=== PATIENT | male | born 1945 | race Caucasian/White ===

== ENCOUNTER → 2018-04-01 | Outpatient (CLI) | payer OTHER ==
[~2018-04-01] MED LIST: LEFLUNOMIDE10 M1 PO; LEVOTHYROXINE100 MC1 PO; LOSARTAN POTAS100 M1 PO; METOPROLOL TART50 M1 PO
== END | disposition home or self-care (01) ==
LOC: CT 09:29
DX: I71.2 Thoracic aortic aneurysm, without rupture (principal); I65.29 Occlusion and stenosis of unspecified carotid artery; I25.10 Atherosclerotic heart disease of native coronary artery without angina pectoris

== ENCOUNTER → 2018-04-05 | Outpatient (CLI) | payer OTHER | END | disposition home or self-care (01) | LOC: CT 04-04 10:00 | DX: I65.23 Occlusion and stenosis of bilateral carotid arteries (principal); K76.89 Other specified diseases of liver; I72.8 Aneurysm of other specified arteries; I71.2 Thoracic aortic aneurysm, without rupture ==

== ENCOUNTER → 2018-06-12 | Day surgery (SDC) | payer OTHER ==
[~2018-06-12] VITALS: Ht 182.8 cm; Wt 74.8 kg
[~2018-06-12] MED LIST changes: +AUGMENTIN 500500 M1 PO; +HYDROCODONE-AC1 EAC1 PO; +LOSARTAN POTASS25 M1 PO; +PREDNISONE5 MG PO
--- NOTE | ~2018-06-12 | O ---
[place], [place] OPERATIVE NOTE NAME: JEREMIAH PALMA UNIT #: [id number] ROOM: DOCTOR: MASON JEAN MD BIRTHDATE: [birth year] DOS: 06/12/2018 PREOPERATIVE DIAGNOSIS: Cataract, left eye. POSTOPERATIVE DIAGNOSIS: Cataract, left eye. OPERATION: Extracapsular cataract extraction by phacoemulsification with posterior chamber intraocular lens implantation, left eye. ANESTHESIA: Monitored standby. OPERATIVE FINDINGS AND PROCEDURE: 2% Xylocaine topical anesthetic gel was applied to the eye in the preop area. The patient was taken to the operating room and prepped and draped in the standard fashion for sterile intraocular surgery. A time out procedure was performed verifying correct patient, correct site and corrects lens with Isabel Jean M.D. The operating microscope was swung into position and the lid speculum was inserted. Using a Zarina paracentesis blade, a paracentesis was made through clear cornea. Viscoelastic was used to fill the anterior chamber. Using a metal keratome a 2.4 mm self-sealing clear corneal cataract incision was made temporally at the limbus. Using a pre-bent 25 gauge cystotome needle, a standard continuous curvilinear capsulorrhexis was performed. The anterior capsule was removed with forceps. The lens nucleus was hydrodissected and phacoemulsified in the posterior chamber. Cortical material was removed with the irrigation aspiration hand piece and the posterior capsule was then polished with a curet under irrigation. The posterior chamber and capsular bag were filled with viscoelastic. A posterior chamber intraocular lens manufactured by: [employer], Model AU00T0, and 23.0 diopters in strength were then inserted into the posterior chamber and within the capsular bag using the lens cartridge and injector system. Viscoelastic was removed using the irrigation aspiration handpiece. The anterior chamber was filled with balanced salt solution through the paracentesis. Both the paracentesis site and cataract incisions were hydrated with BSS and verified to be water-tight and self-sealing. The incision checked to be water-tight using a Weck-Kandace sponge. The integrity of the cataract wound and ocular tension were checked. Lid speculum and drapes were removed. The patient was transferred from the operating room to the recovery room in satisfactory condition. [place], [place] OPERATIVE NOTE NAME: JEREMIAH PALMA UNIT #: [id number] ROOM: DOCTOR: MASON JEAN MD BIRTHDATE: [birth year] MASON JEAN MD CM:OPRECORD:OPERATIVE NOTE 1205 1215 MASON JEAN MD 06/12/18 1214 interface
[2018-06-12 10:45] VITALS: BP 131/93
[2018-06-12 12:03] VITALS: BP 119/74
[2018-06-12 12:13] VITALS: BP 124/90
[2018-06-12 12:26] VITALS: BP 129/96
== END | disposition home or self-care (01) ==
LOC: SDC 06-07 11:00
DX: H25.812 Combined forms of age-related cataract, left eye (principal); I10 Essential (primary) hypertension; F17.210 Nicotine dependence, cigarettes, uncomplicated; M19.90 Unspecified osteoarthritis, unspecified site; I73.9 Peripheral vascular disease, unspecified; Z88.0 Allergy status to penicillin; Z72.89 Other problems related to lifestyle; Z98.41 Cataract extraction status, right eye; Z79.82 Long term (current) use of aspirin; Z79.899 Other long term (current) drug therapy; Z82.49 Family history of ischemic heart disease and other diseases of the circulatory system

== ENCOUNTER 2018-10-15 11:28 | Inpatient (IN) | payer OTHER ==
[~2018-10-15] VITALS: Ht 182.8 cm; Wt 77.1 kg
--- NOTE | ~2018-10-15 | EKG ---
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
--- NOTE | ~2018-10-15 | EKG ---
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
--- NOTE | ~2018-10-15 | CON ---
[place], [place] REPORT OF CONSULTATION NAME: JEREMIAH PALMA UNIT #: [id number] ROOM: 524 DOCTOR: DEVAN RAMIREZ MD BIRTHDATE: [birth year] DOS: 10/16/2018 HISTORY OF PRESENT ILLNESS: The patient is a 72-year-old gentleman who follows up with ____ as well as Dr. Kinney. The patient has a thoracic aortic aneurysm measuring 3.2 cm. He was started on Toprol XL 100 mg daily and his blood pressure was down. The patient states that he was trying to get out of the bed and he fell down and he could not lay and he was on the ground for almost the whole night. The patient's troponin was elevated and it is down to 0.74. Never had any chest discomfort. No previous history of coronary artery disease. I am trying to get the information from Dr. Rivera's office. PAST MEDICAL HISTORY: Known history of thoracic aortic aneurysm, history of hypertension, hypothyroidism and rheumatoid arthritis. PAST SURGICAL HISTORY: Cataract surgery. ALLERGIES: None. HOME MEDICATIONS: Losartan 100 mg daily and metoprolol 50 mg every 12 hours, leflunomide 10 mg daily. REVIEW OF SYSTEMS: CONSTITUTIONAL: No fever, no chills. HEENT: No visual disturbance or hearing problems. CARDIOVASCULAR: No chest discomfort. RESPIRATORY: Has some shortness of breath. ABDOMEN: No abdominal pain. GENITOURINARY: No dysuria. Does complains of scrotal swelling and pain. PHYSICAL EXAMINATION: VITAL SIGNS: Blood pressure is 108/74. GENERAL: The patient is in sinus rhythm to sinus bradycardia. HEENT: Unremarkable. NECK: Supple, no JVD. LUNGS: Diminished breath sounds. HEART: Sounds are regular. ABDOMEN: Soft, no masses, no rebound. EXTREMITIES: No clubbing. NEUROLOGICAL: Intact. GENITOURINARY: Positive for scrotal abscess. Chest x-ray shows no acute cardiopulmonary process. LABORATORY DATA: Shows hemoglobin 14 and hematocrit 44.9. Electrolytes are normal. Creatinine is 0.9. INR is 0.9. Troponin came down to 0.74. IMPRESSION: The patient with a scrotal abscess with a fall and probable rhabdomyolysis, history of thoracic aortic aneurysm and hypertension. The patient apparently was hypotensive, might have led to elevated troponin, probably demand ischemia. [place], [place] REPORT OF CONSULTATION NAME: JEREMIAH PALMA UNIT #: [id number] ROOM: 524 DOCTOR: ASHLEY MELARA,DEVAN BIRTHDATE: [birth year] RECOMMENDATIONS: Agree with hollingsworth culturing and IV antibiotics, decrease the losartan to 50 mg. Keep the systolic blood pressure above 110. IV hydration. Get an echocardiogram to assess the ejection fraction prior to giving him lots of IV fluids. Surgical consult has been obtained and we will closely monitor. QT interval has come down already to 360 milliseconds with a QTC of 450 milliseconds. We will monitor, but the patient is in sinus rhythm. No evidence of cardiac dysrhythmia. DEVAN RAMIREZ MD CM:CONSTR:REPORT OF CONSULTATION 0934 10/16/18 1420 interface
--- NOTE | ~2018-10-15 | EKG ---
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
--- NOTE | ~2018-10-15 | PR ---
[place], [place] PROGRESS NOTE NAME: [facility]H [facility]MA [id number] UNIT #: [id number] ROOM: 524 DOCTOR: CIARAN TORO MD BIRTHDATE: [birth year] DOS: 10/17/2018 SUBJECTIVE: I am seeing this patient on behalf of Dr. Sepulveda who has evaluated this patient yesterday. He had scrotal abscess drained and he has a fair amount of pain at this time. He has no chest pain, dizziness, weakness. Has not had any fever or chills. He is not nauseated. The patient is alert, oriented. He is in pain. His complexion looks fine. PHYSICAL EXAMINATION: VITAL SIGNS: Temperature is 98.4 degrees. Pulse is 100 and regular, blood pressure 102/58, previous blood pressures were 90/61, 105/64 and 93/69. NECK: Normal JVP. LUNGS: Fairly clear. EXTREMITIES: There is no edema at all in the lower extremities. ABDOMEN: Supple and nontender. IMPRESSION: This patient has low blood pressure and is on 100 mg of losartan and also is on beta ruchi. RECOMMENDATION: Reduce dose of losartan to 50 mg daily. I discussed this with his nurse. CIARAN TORO MD CM:PNTRANS [id number] CIARAN TORO MD 10/17/18 8189 interface
[~2018-10-15 11:28] MED LIST changes: -AUGMENTIN 500500 M1 PO; -HYDROCODONE-AC1 EAC1 PO; -LOSARTAN POTASS25 M1 PO; -PREDNISONE5 MG PO
[2018-10-15 11:33] VITALS: BP 90/66
--- NOTE | 2018-10-15 11:37 | NUR ---
UNABLE TO EVALUATE PT D/T PT "TOLD ME I NEEDED TO LEAVE THE ROOM WHILE HE WAS SPEAKING TO THE DOCTOR".
[2018-10-15 11:38] VITALS: BP 105/65
[2018-10-15 11:53] LABS: BASO # 0.1 10*3/uL (0.0-0.1); BASO % 0.5 % (0.0-1.0); EOS % 0.2 % (1.0-4.0); HEMATOCRIT 45.7 % (42.0-52.0); HEMOGLOBIN 15.3 g/dl (14.0-18.0); LYMPH # 1.3 10*3/uL (1.3-4.4); MEAN CORPUSCULAR HGB 32.5 pg (27.0-31.0); MEAN CORPUSCULAR HGB CONC 33.5 g/dl (33.0-37.0); MEAN PLATELET VOLUME 10.1 fl (9.6-12.3); MONO # 0.8 10*3/uL (0.1-1.0); MONO % 8.2 % (3.0-9.0); NEUT # 7.6 10*3/uL (2.3-7.9); NEUT % 77.7 % (47.0-73.0); PLATELET COUNT AUTOMATED 159 10*3/uL (130-400); RED BLOOD COUNT 4.71 10*6/uL (4.50-5.90); WHITE BLOOD COUNT 9.7 10*3/uL (4.8-10.8)
[2018-10-15 12:03] LABS: ACT PARTIAL THROMBO TIME 29.7 SECONDS (20.0-32.1); INTERNATIONAL NORM RATIO 0.9 (2.0-3.5)
[2018-10-15 12:08] LABS: ALBUMIN 2.8 gm/dl (3.1-4.5); ALKALINE PHOSPHATASE 77 U/L (45-117); BUN 21 mg/dl (7-24); CHLORIDE 101 mmol/L (98-107); CREATININE 1.11 mg/dL (0.70-1.30); POTASSIUM 3.5 mmol/L (3.5-5.1); SGOT/AST 21 IU/L (3-35); SGPT/ALT 18 U/L (12-78); SODIUM 133 mmol/L (136-145); TOTAL PROTEIN 7.4 gm/dL (6.4-8.2)
--- NOTE | 2018-10-15 12:09 | NUR ---
PT REFUSES IV AND TO CHANGE INTO A GOWN @ THIS TIME.
--- NOTE | 2018-10-15 12:18 | NUR ---
CRITICAL LAB RESULT GIVEN TO DR RITCHIE
[2018-10-15 12:28] VITALS: BP 108/74
--- NOTE | 2018-10-15 13:11 | NUR ---
PT POSITIONED FOR COMFORT WITH A BLANKET PROVIDED AND STILL REFUSES IV ACCESS. PT AWARE THAT REQUIRE URINE SAMPLE FOR ANALYSIS,SPOUSE @ BEDSIDE AND CALL LIGHT WITHIN REACH.
--- NOTE | 2018-10-15 14:29 | NUR ---
PT STATING "I AM GOING OUTSIDE TO SMOKE NOW!,DISCUSSED WITH PT AND SPOUSE THAT HE(PT)IS NOT TO LEAVE THE ED AND THAT THE [facility] IS A NONSMOKING AREA,ACKNOWLEDGENT GIVEN AND PT WAS PUSHED VIA W/C PER SPOUSE OF OF THE ED TOWARDS THE LOBBY". DR RITCHIE AWARE AND MALLY NEGRETE APRN AND DR ADAIR TO ED TO EVALUATE PT @ THIS TIME.
--- NOTE | 2018-10-15 14:37 | NUR ---
SECURITY TO ER TO RETRIEVE PT AND RAFY DALTON AWARE.
--- NOTE | 2018-10-15 15:10 | NUR ---
PT REFUSED NICOTINE PATCH @ THIS TIME.
--- NOTE | 2018-10-15 15:30 | NUR ---
A 72, admitted to , under the services of BREANNA Mcguire DO with a diagnosis of SCROTAL ABSCESS, PROLONGED Q-T INTERVAL. Chief complaint is WEAKNESS AND ABSCESS TO SCROTUM. Patient arrived via bed from ER. Monitor applied. Initial assessment completed. Vital signs taken and recorded. BREANNA MCGUIRE DO notified of admission to the unit. Orders received. See assessment for past medical history, medications and allergies. Patient and/or family oriented to unit. [facility] visitation policy reviewed. Clothing/patient valuable form completed. RICHY BOND
[2018-10-15 15:32] VITALS: BP 114/89
[2018-10-15 16:00] VITALS: BP 99/72
--- NOTE | 2018-10-15 16:29 | NUR ---
SPOKE WITH ; ORDER OBTAINED FOR ECHO.
[2018-10-15 19:07] LABS: BILIRUBIN NEGATIVE (NEGATIVE); BLOOD NEGATIVE (NEGATIVE); CLARITY SL CLOUDY (CLEAR); COLOR YELLOW (YELLOW); GLUCOSE NEGATIVE (NEGATIVE); KETONE NEGATIVE (NEGATIVE); LEUKO ESTERASE NEGATIVE (NEGATIVE); NITRITE NEGATIVE (NEGATIVE); PH 5.5 (5.0-9.0); SPECIFIC GRAVITY >= 1.030 (1.005-1.030); UROBILINOGEN 0.2 E.U./dl (0.2-1.0)
[2018-10-15 19:30] LABS: BACTERIA TRACE; EPITHELIAL CELLS 0-2; MUCOUS 1+; WBC 0-2 wbc/hpf (0-5)
[2018-10-15 20:00] VITALS: BP 99/79
--- NOTE | 2018-10-15 20:00 | NUR ---
PATIENT REFUSED ADMISSION PHOTOS OF SCROTAL ABCESS.
--- NOTE | 2018-10-15 20:38 | NUR ---
PATIENT MEDICATED WITH TYLENOL FOR FEVER OF 101.5. WILL CONTINUE TO MONITOR. CALL LIGHT IN REACH.
[2018-10-16] VITALS (7 sets, daily range): BP systolic 89–110; BP diastolic 60–76
--- NOTE | 2018-10-16 05:31 | NUR ---
JEREMIAH PALMA Latrell [id number] Please refer to the physician's history and physical for past medical history, comorbid conditions, and allergies. Diagnosis: SCROTAL ABCESS PROLONGED Q-T INTERVAL ON ECG Rafiq Score: 18,AT RISK WOUND DESCRIPTIONS: Wound Number: 1 Location of the wound: Right of testicle Type of wound: abscess Size: 4.0cm x 2.0cm x <0.1cm Tunneling: none Undermining: none Sinus Tract: none Presence of Exudate: none Amount: None Color: Red Odor: None Periwound Skin Appearance: Normal Wound edges: closed Pain (associated with wound): very tender to touch How does patient state this happened? pt stated this started a couple of days with pain then a lump developed Surface the patient is resting on: Isoflex SKIN PREVENTION RECOMMENDATION: 1. Pressure redistribution support surface as appropriate 2. Elevate heels 3. Remove boots/TEDS every shift and reapply 4. Head of bed 30 degrees as tolerated 5. Assess nutrition and hydration 6. Manage moisture 7. Avoid the use of containment devices while in bed 8. Use absorptive products on surfaces limit layers of linens on bed 9. Turn and reposition every 1-2 hours in bed and every 1 hour in chair as tolerated 10. Weight shifts every 15 minutes while up in chair 11. Offloading with pillows or device to keep heels elevated off bed 12. Monitor skin at least every shift 13. Inspect under medical devices twice a day WOUND TREATMENT RECOMMENDATIONS: Consult general surgery or urology due to testicular U/S: Complex lesion within right scrotum measuring 2.7 x 2.4 x 2.6 cm. Findings are suggestive of abscess.
[2018-10-16 06:23] LABS: BASO % 0.4 % (0.0-1.0); EOS # 0.1 10*3/uL (0.0-0.4); EOS % 0.7 % (1.0-4.0); HEMATOCRIT 44.9 % (42.0-52.0); HEMOGLOBIN 14.8 g/dl (14.0-18.0); LYMPH # 0.9 10*3/uL (1.3-4.4); LYMPH % 10.1 % (27.0-41.0); MEAN CORPUSCULAR HGB 32.3 pg (27.0-31.0); MEAN PLATELET VOLUME 10.1 fl (9.6-12.3); MONO # 0.7 10*3/uL (0.1-1.0); MONO % 7.6 % (3.0-9.0); NEUT # 7.2 10*3/uL (2.3-7.9); NEUT % 80.6 % (47.0-73.0); PLATELET COUNT AUTOMATED 152 10*3/uL (130-400); RED BLOOD COUNT 4.58 10*6/uL (4.50-5.90); RED CELL DISTRI WIDTH 14.1 % (0-14.5); WHITE BLOOD COUNT 8.9 10*3/uL (4.8-10.8)
[2018-10-16 06:42] LABS: ALBUMIN 2.4 gm/dl (3.1-4.5); ALKALINE PHOSPHATASE 73 U/L (45-117); BUN 18 mg/dl (7-24); CHLORIDE 104 mmol/L (98-107); CHOLESTEROL 202 mg/dL (<200); CREATININE 0.99 mg/dL (0.70-1.30); HDL CHOLESTEROL 27 mg/dl (40-60); LDL CHOLESTEROL 140 mg/dL (9-159); PHOSPHOROUS 2.3 mg/dL (2.5-4.9); POTASSIUM 3.6 mmol/L (3.5-5.1); SGOT/AST 21 IU/L (3-35); SGPT/ALT 16 U/L (12-78); SODIUM 135 mmol/L (136-145); TOTAL PROTEIN 6.8 gm/dL (6.4-8.2); TRIGLYCERIDES 174 mg/dl (<150); VLDL CHOLESTEROL 35 mg/dL (6-40)
--- NOTE | 2018-10-16 08:11 | NUR ---
PHYSICAL THERAPY Nursing screen received and chart reviewed. Physical therapy referral received. Thank you. Shwetha Shea,PT,DPT.
--- NOTE | 2018-10-16 08:28 | NUR ---
Nursing screen completed and occupational therapy referral received. Thank you. Danelle Jones OTR/L
[2018-10-16 08:56] LABS: VITAMIN D, 25-HYDROXY 25.9 ng/mL (30-100)
--- NOTE | 2018-10-16 11:15 | NUR ---
Diesel Powerplant Mechanic Helper in to talk to patient. Patient states lives at HOME with . There are FEW steps in the home. Physician: ADIA Pharmacy: [facility] Home health services: NONE Patient's level of ADLs: INDEPENDENT Patient has working utilities: YES DME: NONE Follow-up physician's appointment after d/c: WILL BE MADE BY HOSPITALIST NURSE DIRECTOR ON DISCHARGE Does patient want to access PORTAL?: NO Discharge plan PT LIVES AT HOME WITH HIS AND IS INDEPNDENT IN HIS CARE. DENIES THAT HE WILL HAVE NEEDS ON DISCHARGE AT THIS TIME. TALKED WITH HIM ABOUT HOME HEALTH FOR ASSISTANCE AT HOME BUT HE DECLINES. WILL CONTINUE TO FOLLOW.. STATES HE WILL HAVE A RIDE HOME. JASKARAN AUSTIN
--- NOTE | 2018-10-16 11:30 | NUR ---
Patient approached for Occupational Therapy evaluation and reported that he did not feel well today. OTR will attempt at a later date. Danelle Jones OTR/jo
--- NOTE | 2018-10-16 11:30 | NUR ---
PHYSICAL THERAPY Physical therapy evaluation offered. Patient requesting therapy services to try again tomorrow. Will attempt PT evaluation at a later date. Thank you. Shwetha Shea,PT,DPT.
--- NOTE | 2018-10-16 17:30 | NUR ---
ANESTHESIA NA.EBONY IS ADMINISTERING IV TYLENOL ORDERED.
--- NOTE | 2018-10-16 20:30 | NUR ---
PATIENT REFUSED ICE APPLICATION
[2018-10-17] VITALS: BP 90/61
--- NOTE | 2018-10-17 05:19 | NUR ---
Patient is requesting follow up in the wound care center with Dr. Ruiz next sunday.
--- NOTE | 2018-10-17 05:41 | NUR ---
DR. PRABHAKAR NOTIFIED OF PATIENT HAVING A TICKLE IN HIS THROAT AND CANNOT STOP COUGHING. ORDER RECIEVED FOR CEPACOL Q1H PRN
--- NOTE | 2018-10-17 06:38 | NUR ---
PT REFUSED ICE APPLICATION AT THIS TIME
--- NOTE | 2018-10-17 06:39 | NUR ---
OFFERED TO CHANGE PATIENTS BED AND GOWN SINCE HE STATED THATIT WAS SOILED. HE STATED HE WAS FINE AND IT DIDN'T NEED CHANGED AT THIS TIME
[2018-10-17 08:00] VITALS: BP 102/58
--- NOTE | 2018-10-17 08:48 | NUR ---
Dr. Dudley notified of wound care recommendations.
--- NOTE | 2018-10-17 08:55 | NUR ---
Follow up with Dr. Ruiz in wound care clinic on 10/21/18 at 1:45pm, call [phone] with any concerns
[2018-10-17] MEDS ORDERED: PREDNISONE5 MG PO (09:24)
--- NOTE | 2018-10-17 10:06 | NUR ---
PHYSICAL THERAPY Physical therapy evaluation offered. Patient refusing skilled PT evaluation at this time, stating, "I'm therapy good. Nah, nope, I'm fine." Patient plans to return home with upon discharge. Discharge PT order at this time. Thank you. Shwetha Shea,PT,DPT.
--- NOTE | 2018-10-17 10:49 | NUR ---
Occupational Therapy evaluation offered this date with present. Patient in bed and when offered OT he responded "no, I'm therapy-good" meaning he did not need any therapy. Patient's verbalized that she did not know if he would be going home or what his discharge plan was and that patient had not been out of bed for 3 days. OTR informed patient [facility] and patient refused and that nursing could assist patient up in chair whenever he is willing to sit out of bed. Discharge OT referral d/t patients refusal for services. Thank you. Danelle Jones OTR/jo
--- NOTE | 2018-10-17 11:00 | NUR ---
PATIENT WAS TOLD BY DOCTOR GIOVANY HE COULD BE DISCHARGED THEN PATIENT VERY ANXIOUS AND WANTING TO LEAVE NOW. EDUCATED THE PRIMARY DOCTOR HAS TO DISCHARGE. PATEINT ARGUING WITH .
--- NOTE | 2018-10-17 12:00 | NUR ---
PATIENT IN HALLWAY DRESSED WANTING TO SMOKE, HE AND ARGUING AGAIN.
--- NOTE | 2018-10-17 12:20 | NUR ---
PATIENT ON FIRST FLOOR BROUGHT BACK UP BY THIS RN TO WAIT FOR D/C PAPERS, PATIENT REFUSING DISCHARGE PHOTO HE JUST WANTS TO SMOKE. PATIENT SITTING IN 5E LOBBY. WILL DO DISCHARGE WHEN AVAILABLE.
--- NOTE | 2018-10-17 12:28 | NUR ---
Nutritional Support Services Note: Pt was triggered dt wound. He's being DC today so no nutrition intervention needed at this time. Jj Fisher Sorter Upholstery Parts Dietitian
[2018-10-17] MEDS ORDERED: AUGMENTIN 500500 M1 PO (12:41)
--- NOTE | 2018-10-17 12:46 | NUR ---
PT STATES HE WILL RETURN HOME WITH AND HAVE NO NEW NEEDS. WILL CONTINUE TO FOLLOW.
[2018-10-17] MEDS ORDERED: LOSARTAN POTASS25 M1 PO (12:51)
[2018-10-17] MEDS ORDERED: HYDROCODONE-AC1 EAC1 PO (12:51)
--- NOTE | 2018-10-17 12:57 | NUR ---
REFUSED DISCHARGE PHOTO ORINSTRUCTIONS, DID DISCHARGE PAPERS.
== END 2018-10-17 13:10 | disposition home or self-care (01) | DRG 717 ==
LOC: ED 11:28 → EDHOLD 14:28 → 5E 14:28
PROVIDERS: Emergency Medicine; Registered Nurse; ADMIT Internal Medicine
PROC: 0V950ZZ Drainage of Scrotum, Open Approach (ICD-10-PCS; principal; 2018-10-16)
DX: N49.2 Inflammatory disorders of scrotum (principal); E43 Unspecified severe protein-calorie malnutrition; I24.8 Other forms of acute ischemic heart disease; M06.9 Rheumatoid arthritis, unspecified; I10 Essential (primary) hypertension; E03.9 Hypothyroidism, unspecified; I45.81 Long QT syndrome; R54 Age-related physical debility; I71.2 Thoracic aortic aneurysm, without rupture; I95.9 Hypotension, unspecified; W06.XXXA Fall from bed, initial encounter; Y93.89 Activity, other specified; Y92.098 Other place in other non-institutional residence as the place of occurrence of the external cause; Y99.8 Other external cause status; Z82.3 Family history of stroke; Z82.49 Family history of ischemic heart disease and other diseases of the circulatory system; Z79.52 Long term (current) use of systemic steroids; Z79.899 Other long term (current) drug therapy; Z98.42 Cataract extraction status, left eye; Z98.41 Cataract extraction status, right eye; Z68.25 Body mass index [BMI] 25.0-25.9, adult; F17.210 Nicotine dependence, cigarettes, uncomplicated

== ENCOUNTER 2018-10-17 20:31 | Emergency (ER) | payer OTHER ==
[~2018-10-17] VITALS: Wt 84.4 kg
--- NOTE | ~2018-10-17 | EKG ---
[place], [place] ELECTROCARDIOGRAM REPORT NAME: JEREMIAH PALMA UNIT #: [id number] ROOM: DOCTOR: EPIPHANY DRAFT REPORT BIRTHDATE: [birth year] [facility] Test Date: 2018-10-17 Test Time: 22:35:06 Pat Name: JEREMIAH PALMA Department: Room: Gender: M Pathology Secretary/Transcriptionist: EKG.[place] : 1945 Requested By: PARI CRONIN Order Number: [id number] Reading MD: Measurements Intervals [place] Rate: 131 P: 52 [place]: 144 QRS: 8 QRSD: 92 T: 63 QT: 298 QTc: 440 Interpretive Statements Sinus tachycardia Left ventricular hypertrophy Probable inferior infarct, recent Baseline wander in lead(s) II,aVF,V2,V6 Compared to ECG 10/15/2018 17:16:37 Sinus rhythm no longer present Early repolarization no longer present Myocardial infarct finding still present CM:EKGRPT:ELECTROCARDIOGRAM REPORT 34 36 PARI SHEN DRAFT REPORT PARI CRONIN MD
[~2018-10-17 20:31] MED LIST changes: +AUGMENTIN 500500 M1 PO; +HYDROCODONE-AC1 EAC1 PO; +LOSARTAN POTASS25 M1 PO; +PREDNISONE5 MG PO
[2018-10-17 21:03] LABS: BASO # 0.1 10*3/uL (0.0-0.1); BASO % 0.8 % (0.0-1.0); EOS # 0.1 10*3/uL (0.0-0.4); EOS % 1.1 % (1.0-4.0); HEMATOCRIT 45.8 % (42.0-52.0); HEMOGLOBIN 15.2 g/dl (14.0-18.0); LYMPH # 0.8 10*3/uL (1.3-4.4); LYMPH % 8.7 % (27.0-41.0); MEAN CELL VOLUME 97.2 fl (80.0-94.0); MEAN CORPUSCULAR HGB 32.3 pg (27.0-31.0); MEAN CORPUSCULAR HGB CONC 33.2 g/dl (33.0-37.0); MEAN PLATELET VOLUME 10.4 fl (9.6-12.3); MONO # 0.4 10*3/uL (0.1-1.0); MONO % 4.2 % (3.0-9.0); NEUT # 7.5 10*3/uL (2.3-7.9); NEUT % 84.7 % (47.0-73.0); PLATELET COUNT AUTOMATED 176 10*3/uL (130-400); RED BLOOD COUNT 4.71 10*6/uL (4.50-5.90); WHITE BLOOD COUNT 8.9 10*3/uL (4.8-10.8)
[2018-10-17 21:21] LABS: ALBUMIN 2.4 gm/dl (3.1-4.5); ALKALINE PHOSPHATASE 94 U/L (45-117); BUN 15 mg/dl (7-24); CHLORIDE 103 mmol/L (98-107); CREATININE 1.06 mg/dL (0.70-1.30); POTASSIUM 3.7 mmol/L (3.5-5.1); SGOT/AST 34 IU/L (3-35); SGPT/ALT 19 U/L (12-78); SODIUM 134 mmol/L (136-145); TOTAL PROTEIN 7.3 gm/dL (6.4-8.2)
[2018-10-17 21:29] LABS: TROPONIN I 0.526 ng/ml (<0.045)
[2018-10-17 22:23] LABS: ABG HCO3 21.1 mmol/l (22-26); ABG O2 SATURATION 98.5 % (95-97); ARTERIAL BLOOD GAS PCO2 60.2 mmHg (35-45)
[2018-10-17 22:26] LABS: ABG BASE EXCESS -7.4 mmol/L (-2.0-2.0); ARTERIAL BLOOD GAS PH 7.181 (7.35-7.45)
[2018-10-17 22:47] LABS: BILIRUBIN NEGATIVE (NEGATIVE); BLOOD 2+ (NEGATIVE); CLARITY SL CLOUDY (CLEAR); COLOR YELLOW (YELLOW); GLUCOSE NEGATIVE (NEGATIVE); KETONE TRACE (NEGATIVE); LEUKO ESTERASE NEGATIVE (NEGATIVE); NITRITE NEGATIVE (NEGATIVE); PH 5.5 (5.0-9.0); SPECIFIC GRAVITY 1.025 (1.005-1.030); UROBILINOGEN 0.2 E.U./dl (0.2-1.0)
[2018-10-17 22:54] LABS: BACTERIA 3+; WBC 0-2 wbc/hpf (0-5)
[2018-10-18 00:40] VITALS: BP 119/89
== END 2018-10-18 01:47 | disposition short-term general hospital (02) ==
LOC: ED 20:31
PROVIDERS: Emergency Medicine Emergency Medical Services; Internal Medicine
DX: A41.9 Sepsis, unspecified organism (principal); R65.20 Severe sepsis without septic shock; J96.01 Acute respiratory failure with hypoxia; I26.99 Other pulmonary embolism without acute cor pulmonale; I21.4 Non-ST elevation (NSTEMI) myocardial infarction; R32 Unspecified urinary incontinence; I10 Essential (primary) hypertension; E03.9 Hypothyroidism, unspecified; M06.9 Rheumatoid arthritis, unspecified; F17.210 Nicotine dependence, cigarettes, uncomplicated; Z79.2 Long term (current) use of antibiotics; Z79.899 Other long term (current) drug therapy

== ENCOUNTER 2019-11-01 20:17 | Inpatient (IN) | payer OTHER ==
[~2019-11-01] VITALS: Ht 182.8 cm; Wt 64.9 kg
[2019-11-01 20:34] VITALS: BP 103/77
[2019-11-01 21:22] LABS: BASO # 0.1 10*3/uL (0.0-0.1); EOS # 0.3 10*3/uL (0.0-0.4); EOS % 4.2 % (1.0-4.0); HEMATOCRIT 46.7 % (42.0-52.0); LYMPH # 0.8 10*3/uL (1.3-4.4); LYMPH % 13.5 % (27.0-41.0); MEAN CELL VOLUME 96.9 fl (80.0-94.0); MEAN CORPUSCULAR HGB 30.7 pg (27.0-31.0); MEAN CORPUSCULAR HGB CONC 31.7 g/dl (33.0-37.0); MEAN PLATELET VOLUME 10.3 fl (9.6-12.3); MONO # 0.6 10*3/uL (0.1-1.0); MONO % 10.3 % (3.0-9.0); NEUT # 4.4 10*3/uL (2.3-7.9); NEUT % 70.7 % (47.0-73.0); PLATELET COUNT AUTOMATED 209 10*3/uL (130-400); RED BLOOD COUNT 4.82 10*6/uL (4.50-5.90); RED CELL DISTRI WIDTH 15.3 % (0-14.5); WHITE BLOOD COUNT 6.2 10*3/uL (4.8-10.8)
[2019-11-01 21:38] LABS: INTERNATIONAL NORM RATIO 1.4 (2.0-3.5)
[2019-11-01 21:44] LABS: ALBUMIN 2.7 gm/dl (3.1-4.5); ALKALINE PHOSPHATASE 115 U/L (45-117); BUN 8 mg/dl (7-24); CHLORIDE 103 mmol/L (98-107); CREATININE 1.23 mg/dL (0.70-1.30); LIPASE 41 U/L (73-393); POTASSIUM 3.1 mmol/L (3.5-5.1); SGOT/AST 25 IU/L (3-35); SGPT/ALT 18 U/L (12-78); SODIUM 139 mmol/L (136-145); TOTAL PROTEIN 7.2 gm/dL (6.4-8.2)
[2019-11-01 21:46] LABS: TROPONIN I 0.198 ng/ml (<0.045)
[2019-11-01] MEDS ORDERED: FUROSEMIDE20 M1 PO (23:09)
[2019-11-02] VITALS (13 sets, daily range): BP systolic 72–106; BP diastolic 40–83
[2019-11-02 00:10] LABS: BILIRUBIN NEGATIVE; BLOOD NEGATIVE (NEGATIVE); CLARITY CLEAR (CLEAR); COLOR YELLOW (YELLOW); GLUCOSE NEGATIVE; KETONE NEGATIVE; LEUKO ESTERASE TRACE (NEGATIVE); NITRITE NEGATIVE (NEGATIVE); PH 8.5 (5.0-9.0); UROBILINOGEN 0.2 E.U./dl (0.2-1.0)
[2019-11-02 00:13] LABS: BACTERIA 1+; EPITHELIAL CELLS 0-2
[2019-11-02 06:46] LABS: BASO % 0.6 % (0.0-1.0); EOS # 0.2 10*3/uL (0.0-0.4); EOS % 3.1 % (1.0-4.0); HEMATOCRIT 47.9 % (42.0-52.0); LYMPH # 0.7 10*3/uL (1.3-4.4); MEAN CELL VOLUME 96.4 fl (80.0-94.0); MEAN CORPUSCULAR HGB 30.2 pg (27.0-31.0); MEAN CORPUSCULAR HGB CONC 31.3 g/dl (33.0-37.0); MONO # 0.6 10*3/uL (0.1-1.0); MONO % 7.9 % (3.0-9.0); NEUT # 5.6 10*3/uL (2.3-7.9); PLATELET COUNT AUTOMATED 213 10*3/uL (130-400); RED BLOOD COUNT 4.97 10*6/uL (4.50-5.90); RED CELL DISTRI WIDTH 15.3 % (0-14.5); WHITE BLOOD COUNT 7.2 10*3/uL (4.8-10.8)
[2019-11-02 07:01] LABS: ALBUMIN 2.6 gm/dl (3.1-4.5); ALKALINE PHOSPHATASE 114 U/L (45-117); BUN 7 mg/dl (7-24); CHLORIDE 106 mmol/L (98-107); CHOLESTEROL 116 mg/dL (<200); CREATININE 1.15 mg/dL (0.70-1.30); HDL CHOLESTEROL 32 mg/dl (40-60); LDL CHOLESTEROL 58 mg/dL (9-159); POTASSIUM 3.4 mmol/L (3.5-5.1); SGOT/AST 26 IU/L (3-35); SGPT/ALT 19 U/L (12-78); SODIUM 135 mmol/L (136-145); TOTAL PROTEIN 7.1 gm/dL (6.4-8.2); TRIGLYCERIDES 132 mg/dl (<150); VLDL CHOLESTEROL 26 mg/dL (6-40)
[2019-11-02 07:31] LABS: VITAMIN D, 25-HYDROXY 42.2 ng/mL (30-100)
[2019-11-03] VITALS (36 sets, daily range): BP systolic 73–117; BP diastolic 52–92
[2019-11-03 06:04] LABS: BUN 9 mg/dl (7-24); CHLORIDE 104 mmol/L (98-107); CREATININE 1.08 mg/dL (0.70-1.30); POTASSIUM 3.4 mmol/L (3.5-5.1); SODIUM 137 mmol/L (136-145)
[2019-11-03 06:24] LABS: BASO # 0.1 10*3/uL (0.0-0.1); BASO % 0.8 % (0.0-1.0); EOS # 0.2 10*3/uL (0.0-0.4); EOS % 2.6 % (1.0-4.0); HEMATOCRIT 42.3 % (42.0-52.0); LYMPH # 0.4 10*3/uL (1.3-4.4); LYMPH % 6.7 % (27.0-41.0); MEAN CELL VOLUME 99.3 fl (80.0-94.0); MEAN CORPUSCULAR HGB 31.2 pg (27.0-31.0); MEAN CORPUSCULAR HGB CONC 31.4 g/dl (33.0-37.0); MEAN PLATELET VOLUME 10.8 fl (9.6-12.3); MONO # 0.6 10*3/uL (0.1-1.0); MONO % 8.6 % (3.0-9.0); NEUT # 5.2 10*3/uL (2.3-7.9); NEUT % 80.8 % (47.0-73.0); PLATELET COUNT AUTOMATED 179 10*3/uL (130-400); RED BLOOD COUNT 4.26 10*6/uL (4.50-5.90); RED CELL DISTRI WIDTH 15.5 % (0-14.5); WHITE BLOOD COUNT 6.4 10*3/uL (4.8-10.8)
[2019-11-03 11:43] LABS: BODY FLUID WBC 142 /uL
[2019-11-03 14:08] LABS: BF LYMPHOCYTES 20 %; BF MACROPHAGES 72 %; BF MESOTHELIALS 2 %; BF NEUTROPHILS 6 %
[2019-11-04] VITALS (9 sets, daily range): BP systolic 82–98; BP diastolic 56–71
[2019-11-04 06:45] LABS: BASO % 0.5 % (0.0-1.0); EOS # 0.2 10*3/uL (0.0-0.4); EOS % 4.8 % (1.0-4.0); HEMATOCRIT 43.6 % (42.0-52.0); LYMPH # 0.4 10*3/uL (1.3-4.4); LYMPH % 9.9 % (27.0-41.0); MEAN CELL VOLUME 99.3 fl (80.0-94.0); MEAN CORPUSCULAR HGB 31.2 pg (27.0-31.0); MEAN CORPUSCULAR HGB CONC 31.4 g/dl (33.0-37.0); MEAN PLATELET VOLUME 10.7 fl (9.6-12.3); MONO # 0.6 10*3/uL (0.1-1.0); MONO % 13.8 % (3.0-9.0); NEUT # 3.1 10*3/uL (2.3-7.9); NEUT % 70.8 % (47.0-73.0); PLATELET COUNT AUTOMATED 196 10*3/uL (130-400); RED BLOOD COUNT 4.39 10*6/uL (4.50-5.90); RED CELL DISTRI WIDTH 15.2 % (0-14.5); WHITE BLOOD COUNT 4.4 10*3/uL (4.8-10.8)
[2019-11-04 07:19] LABS: BUN 12 mg/dl (7-24); CHLORIDE 104 mmol/L (98-107); POTASSIUM 3.6 mmol/L (3.5-5.1); SODIUM 138 mmol/L (136-145)
[2019-11-05] VITALS: BP 85/61
[2019-11-05 04:00] VITALS: BP 100/73
[2019-11-05 05:52] LABS: BUN 13 mg/dl (7-24); CHLORIDE 105 mmol/L (98-107); CREATININE 1.01 mg/dL (0.70-1.30); POTASSIUM 3.6 mmol/L (3.5-5.1); SODIUM 138 mmol/L (136-145)
[2019-11-05 06:25] LABS: BASO % 1.1 % (0.0-1.0); EOS # 0.2 10*3/uL (0.0-0.4); EOS % 6.3 % (1.0-4.0); HEMATOCRIT 44.2 % (42.0-52.0); LYMPH # 0.6 10*3/uL (1.3-4.4); LYMPH % 16.1 % (27.0-41.0); MEAN CELL VOLUME 98.9 fl (80.0-94.0); MEAN CORPUSCULAR HGB 30.6 pg (27.0-31.0); MEAN PLATELET VOLUME 10.6 fl (9.6-12.3); MONO # 0.7 10*3/uL (0.1-1.0); NEUT # 2.1 10*3/uL (2.3-7.9); NEUT % 58.2 % (47.0-73.0); PLATELET COUNT AUTOMATED 194 10*3/uL (130-400); RED BLOOD COUNT 4.47 10*6/uL (4.50-5.90); RED CELL DISTRI WIDTH 15.1 % (0-14.5); WHITE BLOOD COUNT 3.7 10*3/uL (4.8-10.8)
[2019-11-05 08:00] VITALS: BP 107/74
[2019-11-05 12:00] VITALS: BP 104/79
[2019-11-05 16:00] VITALS: BP 101/76
[2019-11-05 20:00] VITALS: BP 91/60
[2019-11-06] VITALS: BP 98/56
[2019-11-06 04:00] VITALS: BP 107/79
[2019-11-06 06:12] LABS: BUN 13 mg/dl (7-24); CHLORIDE 106 mmol/L (98-107); CREATININE 0.88 mg/dL (0.70-1.30); POTASSIUM 3.2 mmol/L (3.5-5.1); SODIUM 141 mmol/L (136-145)
[2019-11-06 06:43] LABS: BASO % 0.7 % (0.0-1.0); EOS # 0.2 10*3/uL (0.0-0.4); EOS % 3.7 % (1.0-4.0); HEMATOCRIT 40.9 % (42.0-52.0); LYMPH # 0.6 10*3/uL (1.3-4.4); LYMPH % 10.1 % (27.0-41.0); MEAN CELL VOLUME 96.2 fl (80.0-94.0); MEAN CORPUSCULAR HGB 30.6 pg (27.0-31.0); MEAN CORPUSCULAR HGB CONC 31.8 g/dl (33.0-37.0); MEAN PLATELET VOLUME 10.8 fl (9.6-12.3); MONO # 0.7 10*3/uL (0.1-1.0); MONO % 12.7 % (3.0-9.0); NEUT # 4.1 10*3/uL (2.3-7.9); NEUT % 72.3 % (47.0-73.0); PLATELET COUNT AUTOMATED 213 10*3/uL (130-400); RED BLOOD COUNT 4.25 10*6/uL (4.50-5.90); WHITE BLOOD COUNT 5.7 10*3/uL (4.8-10.8)
[2019-11-06 08:00] VITALS: BP 100/71
[2019-11-06 12:00] VITALS: BP 101/70
== END 2019-11-06 15:24 | disposition short-term general hospital (02) | DRG 871 ==
LOC: ED 20:17 → 5E 23:10 → EDHOLD 23:10 → ICCU 23:10 → 5E 23:20 → ICCU 11-02 22:40
PROVIDERS: Internal Medicine; Internal Medicine Critical Care Medicine; Physician Assistant; Student in an Organized Health Care Education/Training Program; ADMIT Student in an Organized Health Care Education/Training Program; ATTEND Student in an Organized Health Care Education/Training Program
PROC: 0W9930Z Drainage of Right Pleural Cavity with Drainage Device, Percutaneous Approach (ICD-10-PCS; principal; 2019-11-03)
DX: A41.9 Sepsis, unspecified organism (principal); E43 Unspecified severe protein-calorie malnutrition; J96.01 Acute respiratory failure with hypoxia; I50.43 Acute on chronic combined systolic (congestive) and diastolic (congestive) heart failure; L03.115 Cellulitis of right lower limb; N30.00 Acute cystitis without hematuria; J93.9 Pneumothorax, unspecified; I42.9 Cardiomyopathy, unspecified; I48.21 Permanent atrial fibrillation; J91.8 Pleural effusion in other conditions classified elsewhere; E03.9 Hypothyroidism, unspecified; M06.9 Rheumatoid arthritis, unspecified; I25.10 Atherosclerotic heart disease of native coronary artery without angina pectoris; D72.810 Lymphocytopenia; E87.6 Hypokalemia; R26.2 Difficulty in walking, not elsewhere classified; R53.81 Other malaise; R63.0 Anorexia; R32 Unspecified urinary incontinence; J43.9 Emphysema, unspecified; I11.0 Hypertensive heart disease with heart failure; R65.20 Severe sepsis without septic shock; I95.9 Hypotension, unspecified; I08.3 Combined rheumatic disorders of mitral, aortic and tricuspid valves; E83.42 Hypomagnesemia; I48.0 Paroxysmal atrial fibrillation; I71.2 Thoracic aortic aneurysm, without rupture; E83.41 Hypermagnesemia; D72.819 Decreased white blood cell count, unspecified; Z68.20 Body mass index [BMI] 20.0-20.9, adult; Z79.899 Other long term (current) drug therapy; Z87.891 Personal history of nicotine dependence; Z82.49 Family history of ischemic heart disease and other diseases of the circulatory system; Z98.42 Cataract extraction status, left eye; Z98.41 Cataract extraction status, right eye; Z79.01 Long term (current) use of anticoagulants; Z82.3 Family history of stroke